=== PATIENT | female | born 1960 | race Caucasian/White ===

== ENCOUNTER 2016-09-12 19:15 | Emergency (ER) | payer OTHER ==
[~2016-09-12] VITALS: Ht 154.9 cm; Wt 54.5 kg
[2016-09-12 19:58] LABS: INR 1.1 (0.9-1.1); PROTHROMBIN TIME 11.3 SEC (9.4-11.6)
[2016-09-12 20:52] LABS: GLUCOSE,POINT OF CARE 131 MG/DL (70-110)
[2016-09-12 21:21] VITALS: BP 112/71
== END 2016-09-12 22:01 | disposition home or self-care (01) ==
LOC: EMS 19:16
DX: S00.93XA Contusion of unspecified part of head, initial encounter (principal); Z88.0 Allergy status to penicillin; Z88.2 Allergy status to sulfonamides; W01.0XXA Fall on same level from slipping, tripping and stumbling without subsequent striking against object, initial encounter; Y93.89 Activity, other specified; Y92.89 Other specified places as the place of occurrence of the external cause; Y99.8 Other external cause status
CPT/HCPCS: 36415; 70450; 82962; 85610; 99285; G0480

== ENCOUNTER 2019-05-27 13:16 | Emergency (ER) | payer OTHER ==
[~2019-05-27] VITALS: Ht 154.9 cm; Wt 59.0 kg
[2019-05-27] MEDS ORDERED: KETOROLAC TROMETHAMINE 10 MG TABLET PO ONE (13:45)
[2019-05-27 17:49] VITALS: BP 141/66
== END 2019-05-27 17:55 | disposition home or self-care (01) ==
LOC: EMS 13:18
DX: S70.01XA Contusion of right hip, initial encounter (principal); S70.11XA Contusion of right thigh, initial encounter; G82.50 Quadriplegia, unspecified; M12.851 Other specific arthropathies, not elsewhere classified, right hip; Z88.2 Allergy status to sulfonamides; Z88.0 Allergy status to penicillin; Z98.890 Other specified postprocedural states; W18.39XA Other fall on same level, initial encounter; Y93.89 Activity, other specified; Y92.89 Other specified places as the place of occurrence of the external cause; Y99.8 Other external cause status
CPT/HCPCS: 73502

== ENCOUNTER 2019-09-18 00:36 | Emergency (ER) | payer OTHER ==
[~2019-09-18] VITALS: Ht 154.9 cm; Wt 56.8 kg
[2019-09-18] MEDS ORDERED: HYDR-3290 PO (00:41)
[2019-09-18 03:01] VITALS: BP 133/79
== END 2019-09-18 04:51 | disposition other institution (70) ==
LOC: EMS 00:38
DX: S22.42XA Multiple fractures of ribs, left side, initial encounter for closed fracture (principal); Z88.0 Allergy status to penicillin; Z88.1 Allergy status to other antibiotic agents; W19.XXXA Unspecified fall, initial encounter; Y93.89 Activity, other specified; Y92.89 Other specified places as the place of occurrence of the external cause; Y99.8 Other external cause status
CPT/HCPCS: 71101